=== PATIENT | male | born 1940 | race Caucasian/White ===

== ENCOUNTER 2022-04-29 11:02 | Outpatient (CLI) | payer MEDICARE, OTHER ==
[~2022-04-29 11:02] MED LIST: BIMA2.5D OP; BRIN10DR6 EACHEYE; DIGO250T PO; ESCI5TAB PO; LISI1TAB51 PO; OMEP20TA23 PO; TRAZ-251 PO
[2022-04-29] MEDS ORDERED: iohexol 300mg/ml 100ml inj. ONE (11:49)
== END 2022-04-29 23:59 | disposition home or self-care (01) ==
LOC: RAD 11:02
PROVIDERS: ATTEND Family Medicine
DX: K57.30 Diverticulosis of large intestine without perforation or abscess without bleeding (principal); J98.11 Atelectasis; N28.1 Cyst of kidney, acquired; R14.0 Abdominal distension (gaseous); K59.00 Constipation, unspecified; N32.89 Other specified disorders of bladder; I70.0 Atherosclerosis of aorta; N43.3 Hydrocele, unspecified; M43.27 Fusion of spine, lumbosacral region; M47.817 Spondylosis without myelopathy or radiculopathy, lumbosacral region
CPT/HCPCS: 74177; J3490; Q9967